=== PATIENT | female | born 2000 | race Two or more races ===

== ENCOUNTER 2019-11-20 16:00 | Inpatient (IN) | payer OTHER ==
[~2019-11-20] VITALS: Ht 162.6 cm; Wt 84.4 kg
[2019-11-20] MEDS ORDERED: PREN-380 PO (16:26)
[2019-11-20] MEDS ORDERED: METHYLERGONOVINE 0.2 MG/ML AMP IM PRN (16:30)
[2019-11-20] MEDS ORDERED: PROMETHAZINE 25 MG/ML VIAL IVP PRN (16:30)
[2019-11-20] MEDS ORDERED: CARBOPROST 250 MCG/ML AMP IM PRN (16:30)
[2019-11-20] MEDS ORDERED: fentaNYL 0.05 MG/ML VIAL IVP PRN (17:20)
[2019-11-20 17:34] LABS: BASOPHILS % (AUTO) 0.2 % (0.0-2.0); EOSINOPHILS % (AUTO) 0.5 % (0.0-4.0); HEMATOCRIT 35.2 % (36-48); HEMOGLOBIN 10.7 g/dL (12.0-16.0); LYMPHOCYTES % (AUTO) 19.6 % (20.5-51.1); MEAN CORPUSCULAR HEMOGLOBIN 23 pg (27-31); MEAN CORPUSCULAR HGB CONC 31 g/dL (33-37); MEAN CORPUSCULAR VOLUME 76.6 fL (80-94); MONOCYTES # (AUTO) 0.5 K/uL (0.8-1.0); MONOCYTES % (AUTO) 4.5 % (1.7-9.3); NEUTROPHILS # (AUTO) 7.7 K/uL (1.8-7.7); NEUTROPHILS % (AUTO) 75.2 % (42.2-75.2); PLATELET COUNT (AUTO) 263 K/uL (140-450); RED CELL DISTRIBUTION WIDTH 16.6 % (11.6-13.7); WHITE BLOOD COUNT (AUTO) 10.2 K/uL (4.5-11.0)
[2019-11-20] MEDS ORDERED: MISOPROSTOL 25 MCG TAB ONE (17:51)
[2019-11-20] MEDS: LACTATED RINGERS 1,000 ML IV SCH (17:53)
[2019-11-20] MEDS ORDERED: INFLUENZA VACCINE QUAD 0.5 ML SYR IMVAC PRN (18:10)
[2019-11-20 18:11] VITALS: BP 111/68
[2019-11-20 18:24] LABS: APPEARANCE,URINE CLEAR (CLEAR); BILIRUBIN,URINE NEGATIVE (NEGATIVE); BLOOD, URINE NEGATIVE (NEGATIVE); COLOR,URINE YELLOW (YELLOW); LEUKOCYTE ESTERASE ,URINE NEGATIVE (NEGATIVE); NITRITE, URINE NEGATIVE (NEGATIVE); UGLUCOSE NEGATIVE (NEGATIVE)
[2019-11-20] MEDS ORDERED: MISOPROSTOL 25 MCG TAB VG SCH (20:00)
[2019-11-20] MEDS ORDERED: MORPHINE SULFATE 4 MG/ML SYR IVP PRN (23:40)
[2019-11-20] MEDS ORDERED: MORPHINE SULFATE 10 MG/ML VIAL ONE (23:46)
[2019-11-21] MEDS ORDERED: MORPHINE SULFATE 10 MG/ML VIAL ONE (06:07)
[2019-11-21 06:11] VITALS: BP 127/86
--- NOTE | 2019-11-21 08:16 | NUR ---
PATIENT HAS BEEN SCREENED AND CATEGORIZED LOW NUTRITION RISK. PATIENT WILL BE SEEN WITHIN 7 DAYS OF ADMISSION. 11/27/[address]
[2019-11-21] MEDS ORDERED: ROPIVACAINE 0.2%/NS PREMIX 200 ML EPI ONE ×2 (08:30→22:54)
[2019-11-21] MEDS ORDERED: EPIDURAL KEYS MC ONE (08:31)
[2019-11-21] MEDS: LACTATED RINGERS 1,000 ML IV SCH ×2 (08:34→15:01)
[2019-11-21] MEDS ORDERED: OXYTOCIN 20 UNITS/LR PREMIX 1,000 ML IV ONE (10:09)
[2019-11-21] MEDS ORDERED: AMPICILLIN 2,000 MG in NACL 0.9% MINI-BAG PLUS 100 ML IV SCH (19:15)
[2019-11-21] MEDS ORDERED: AMPICILLIN 2,000 MG VIAL ONE (19:40)
[2019-11-21] MEDS ORDERED: AMPICILLIN 1,000 MG in NACL 0.9% MINI-BAG PLUS 50 ML IV SCH (20:00)
[2019-11-21] MEDS ORDERED: ACETAMINOPHEN 325 MG TAB ONE (20:01)
[2019-11-21] MEDS: ACETAMINOPHEN 325 MG TAB PO PRN (20:29)
[2019-11-21] MEDS ORDERED: AMPICILLIN 1,000 MG VIAL ONE (23:42)
[2019-11-21] MEDS ORDERED: MISOPROSTOL 25 MCG TAB ONE (23:57)
[2019-11-22] MEDS ORDERED: AMPICILLIN 1,000 MG in NACL 0.9% MINI-BAG PLUS 50 ML IV SCH ×2
[2019-11-22] MEDS: ACETAMINOPHEN 325 MG TAB PO PRN (02:08)
--- NOTE | 2019-11-22 03:02 | NUR ---
0250 BABY DELIVERED AT 0250 WITH CORD AROUND NECK. BABY WAS BLUE AT PRESENTATION AND POSITIVE VENTILATION GIVEN WITH TIFFANY PUFF. BABY PINKED UP AND CRIED. O2 BLOW BY GIVEN AT 5L.
[2019-11-22] MEDS ORDERED: SODIUM PHOSPHATE 118 ML ENEM RC PRN (03:10)
[2019-11-22] MEDS ORDERED: OXYTOCIN 10 UNITS/ML VIAL IM PRN (03:10)
[2019-11-22] MEDS ORDERED: oxyCODONE/APAP 5/325 MG 1 TAB TAB PO PRN (03:10)
[2019-11-22] MEDS ORDERED: METHYLERGONOVINE 0.2 MG/ML AMP IM PRN (03:10)
[2019-11-22] MEDS ORDERED: BENZOCAINE/MENTHOL 20%-0.5% 60 GM CAN TP PRN (03:10)
[2019-11-22] MEDS ORDERED: TEMAZEPAM 15 MG CAP PO PRN (03:10)
[2019-11-22] MEDS ORDERED: HYDROcodone/APAP 5/325 MG 1 TAB TAB PO PRN (03:10)
[2019-11-22] MEDS ORDERED: MEASLES, MUMPS, AND RUBELLA 1 VIAL SQVAC PRN (03:10)
[2019-11-22] MEDS: IBUPROFEN 800 MG TAB PO PRN ×2 (09:51→20:20)
[2019-11-22] MEDS ORDERED: DOCUSATE SOD/SENNA 50/8.6 MG 1 TAB PO SCH (21:00)
[2019-11-23 06:33] LABS: HEMATOCRIT 21.3 % (36-48)
[2019-11-23 06:51] LABS: HEMOGLOBIN 6.8 g/dL (12.0-16.0)
[2019-11-23] MEDS: FERROUS SULFATE 325 MG TABEC PO SCH ×2 (08:41→18:19)
[2019-11-23] MEDS: IBUPROFEN 800 MG TAB PO PRN ×2 (12:23→22:19)
[2019-11-24] MEDS: FERROUS SULFATE 325 MG TABEC PO SCH (08:30)
== END 2019-11-24 15:50 | disposition home or self-care (01) | DRG 560 ==
LOC: MLD 16:00 → OBSVTOIN 16:00 → MFCC 11-22 08:00
PROVIDERS: ADMIT Obstetrics & Gynecology; ATTEND Obstetrics & Gynecology
PROC: 10E0XZZ Delivery of Products of Conception, External Approach (ICD-10-PCS; principal; 2019-11-22)
PROC: 3E0R3BZ Introduction of Anesthetic Agent into Spinal Canal, Percutaneous Approach (ICD-10-PCS; 2019-11-22)
PROC: 00HU33Z Insertion of Infusion Device into Spinal Canal, Percutaneous Approach (ICD-10-PCS; 2019-11-22)
PROC: 0W8NXZZ Division of Female Perineum, External Approach (ICD-10-PCS; 2019-11-22)
PROC: 10907ZC Drainage of Amniotic Fluid, Therapeutic from Products of Conception, Via Natural or Artificial Opening (ICD-10-PCS; 2019-11-22)
PROC: 3E0234Z Introduction of Serum, Toxoid and Vaccine into Muscle, Percutaneous Approach (ICD-10-PCS; 2019-11-23)
DX: O69.1XX0 Labor and delivery complicated by cord around neck, with compression, not applicable or unspecified (principal); R71.0 Precipitous drop in hematocrit; O77.0 Labor and delivery complicated by meconium in amniotic fluid; Z23 Encounter for immunization; Z37.0 Single live birth; Z3A.39 39 weeks gestation of pregnancy
CPT/HCPCS: 36415; 51702; 59200; 81003; 85018; 85025; 86592; 86886; 86900; 86901; 90715; J0290; J2270; J2550; J2590; J2795; J3010; J7120